=== PATIENT | male | born 1955 | race Two or more races ===

== ENCOUNTER 2020-10-25 12:50 | Outpatient (CLI) | payer OTHER | END 2020-10-25 13:02 | disposition home or self-care (01) | LOC: TOM 12:50 | PROVIDERS: ATTEND Urology | DX: N20.0 Calculus of kidney (principal); R22.9 Localized swelling, mass and lump, unspecified ==

== ENCOUNTER → 2022-11-07 | Emergency (ER) | payer OTHER ==
[~2022-11-07] VITALS: Ht 167.6 cm; Wt 68.0 kg
[~2022-11-07] MED LIST: DOXAZOSIN MESYLA4 MG PO
== END | disposition home or self-care (01) ==
LOC: ER 02:00
DX: N40.1 Benign prostatic hyperplasia with lower urinary tract symptoms (principal); R33.8 Other retention of urine; N39.0 Urinary tract infection, site not specified

== ENCOUNTER 2022-11-12 15:32 | Outpatient (CLI) | payer OTHER | END 2022-11-12 23:00 | disposition home or self-care (01) | LOC: LAB 15:32 → EKG 15:32 → LAB 23:00 | PROVIDERS: ATTEND Urology | DX: Z01.810 Encounter for preprocedural cardiovascular examination (principal); Z01.811 Encounter for preprocedural respiratory examination; N40.1 Benign prostatic hyperplasia with lower urinary tract symptoms; N39.0 Urinary tract infection, site not specified ==

== ENCOUNTER 2022-11-12 16:43 | Emergency (ER) | payer OTHER ==
[~2022-11-12] VITALS: Ht 167.6 cm; Wt 72.6 kg
== END 2022-11-12 18:20 | disposition home or self-care (01) ==
LOC: ER 16:43
DX: N39.9 Disorder of urinary system, unspecified (principal)

== ENCOUNTER 2022-11-21 05:45 | Day surgery (SDC) | payer OTHER ==
[~2022-11-21] VITALS: Ht 167.6 cm; Wt 68.0 kg
[2022-11-21] MEDS ORDERED: TADALAFIL5 MG (07:49)
[2022-11-21] MEDS ORDERED: PANTOPRAZOLE SO40 MG (07:49)
== END 2022-11-21 15:55 | disposition home or self-care (01) ==
LOC: SURG 05:45 → CIR.AMB 05:45 → O/R 05:45 → SURG 07:00 → SURH 10:37 → O/R 10:37 → SURH 10:54 → EDSTATUS 11:15 → SURG 11:15 → CIR.AMB 15:55 → O/R 15:55
PROVIDERS: ATTEND Urology
DX: N40.1 Benign prostatic hyperplasia with lower urinary tract symptoms (principal); R33.8 Other retention of urine; Z20.822 Contact with and (suspected) exposure to COVID-19; N39.0 Urinary tract infection, site not specified

== ENCOUNTER 2023-03-12 15:14 | Outpatient (CLI) | payer OTHER ==
[~2023-03-12 15:14] MED LIST changes: +PANTOPRAZOLE SO40 MG; +TADALAFIL5 MG
== END 2023-03-12 15:45 | disposition home or self-care (01) ==
LOC: RAD 15:14
DX: M20.41 Other hammer toe(s) (acquired), right foot (principal)

== ENCOUNTER 2023-03-12 15:35 | Outpatient (CLI) | payer OTHER | END 2023-03-12 15:44 | disposition home or self-care (01) | LOC: LAB 15:35 | DX: R97.21 Rising PSA following treatment for malignant neoplasm of prostate (principal) ==

== ENCOUNTER 2024-06-30 10:42 | Outpatient (CLI) | payer OTHER | END 2024-06-30 10:47 | disposition home or self-care (01) | LOC: SONOGRAMA 10:42 | DX: R33.8 Other retention of urine (principal); N13.39 Other hydronephrosis ==